=== PATIENT | male | born 1980 | race Caucasian/White ===

== ENCOUNTER → 2019-01-24 10:44 | Outpatient (CLI) | payer OTHER, SELFPAY ==
--- NOTE | 2019-01-24 | DI.RAD.S_ITS ---
PROCEDURE: XR CHEST 2V INDICATIONS: ACUTE BRONCHITIS, UNSPECIFIED TECHNIQUE: 2 views of the chest were acquired. COMPARISON: [facility], CHEST 1 VIEW, 12/31/2014, 18:36. [facility], CHEST 2 VIEW, 07/16/2014, 16:51. FINDINGS: Surgical changes and devices: None. Lungs and pleura: Lungs are clear. No pleural effusions or pneumothorax. Mediastinum: Mediastinal contours are normal. Heart size is normal. Bones and chest wall: No suspicious bony abnormalities. Soft tissues appear unremarkable. IMPRESSION: No acute cardiopulmonary disease. Dictated by: Jo Lopez M.D. on 01/24/2019 at 12:38 Approved by: Jo Lopez M.D. on 01/24/2019 at 12:39
[2019-01-24 11:47] LABS: Add Manual Diff / Slide Review NO; Basophils Absolute Auto 100 /uL (0-100); Basophils Percent Auto 0.7 % (0-2); Eosinophils Absolute Auto 0 /uL (0-450); Hematocrit 41.6 % (41-53); Hemoglobin 14.2 g/dL (13.5-17.5); Lymphocytes Absolute Auto 2500 /uL (1100-4500); Lymphocytes Percent Auto 18.3 % (25-40); Mean Corpuscular HGB Conc 34.2 % (30-36); Mean Corpuscular Hemoglobin 32.1 PG (26-34); Mean Corpuscular Volume 93.8 fL (80-100); Monocytes Absolute Auto 700 /uL (0-900); Monocytes Percent Auto 5.2 % (3-14); Neutrophils Absolute Auto 10200 /uL (1500-7000); Neutrophils Percent Auto 75.8 % (50-75); Platelet Count 557 X10^3/uL (150-400); Red Blood Cell Count 4.43 X10^6/uL (4.5-5.9); Red Cell Distribution Width 13.9 % (11.6-14.8); White Blood Cell Count 13.5 X10^3/uL (4.5-11.0)
[2019-01-24 12:21] LABS: Alanine Aminotransferase 38 IU/L (21-72); Albumin 4.1 g/dL (3.5-5.0); Albumin Globulin Ratio 1.4 (1.0-2.8); Alkaline Phosphatase 96 U/L (38-126); Aspartate Aminotransferase 38 IU/L (17-59); BUN Creatinine Ratio 14.4 (6-22); Bilirubin Total 0.3 mg/dL (0.2-1.3); Blood Urea Nitrogen 13 mg/dL (9-20); Calcium 8.9 mg/dL (8.4-10.2); Carbon Dioxide 24 mmol/L (22-32); Chloride 103 mmol/L (98-107); Cholesterol 174 mg/dL (140-199); Estimated Glomerular Filt Rate > 60.0 mL/min (>60); Glucose 84 mg/dL (70-100); HDL Cholesterol 33 mg/dL (40-60); HEMOLYSIS < 15 (0-50); LDL Cholesterol Calculated 103 mg/dL (<100); Potassium 4.7 mmol/L (3.4-5.1); Sodium 140 mmol/L (137-145); Total Protein 7.1 g/dL (6.3-8.2); Triglycerides 188 mg/dL (35-150)
[2019-01-24 12:51] LABS: Prostate Specific Antigen Scrn 0.603 ng/mL (0.1-4.0); TSH w/ Reflex to FT4 2.05 uIU/mL (0.47-4.68)
== END ==
PROVIDERS: PCP Student in an Organized Health Care Education/Training Program; Visit Provider Student in an Organized Health Care Education/Training Program
DX: Z12.5 Encounter for screening for malignant neoplasm of prostate (principal); Z13.220 Encounter for screening for lipoid disorders; Z13.228 Encounter for screening for other metabolic disorders; C91.01 Acute lymphoblastic leukemia, in remission
CPT/HCPCS: 36415; 71046; 80053; 80061; 84443; 85025; G0103